=== PATIENT | male | born 1990 | race Caucasian/White ===

== ENCOUNTER 2017-09-14 08:26 | Emergency (ER) | payer OTHER ==
[~2017-09-14] VITALS: Ht 190.5 cm; Wt 131.5 kg
[~2017-09-14 08:26] MED LIST: AUGMENTIN875 MG PO; PERCOCET 5/31 TABLET PO
[2017-09-14] MEDS ORDERED: FLEXERIL10 MG PO (10:00)
[2017-09-14] MEDS ORDERED: PREDNISONE10 MG PO (10:00)
[2017-09-14] MEDS ORDERED: TRAMADOL HCL50 MG PO (10:00)
[2017-09-14 10:44] VITALS: BP 148/83
== END 2017-09-14 10:44 | disposition home or self-care (01) ==
LOC: EME 08:26
DX: M54.32 Sciatica, left side (principal); S39.92XA Unspecified injury of lower back, initial encounter; X50.0XXA Overexertion from strenuous movement or load, initial encounter; F17.200 Nicotine dependence, unspecified, uncomplicated
CPT/HCPCS: 99281; 99283; J7512

== ENCOUNTER 2018-06-20 06:34 | Emergency (ER) | payer SELFPAY ==
[~2018-06-20] VITALS: Ht 190.5 cm; Wt 133.4 kg
[~2018-06-20 06:34] MED LIST changes: +FLEXERIL10 MG PO; +PREDNISONE10 MG PO; +TRAMADOL HCL50 MG PO
[2018-06-20 07:20] LABS: BASOPHIL (%) 0.3 % (0-1); EOSINOPHIL (%) 1.6 % (0-5); EOSINOPHIL COUNT 0.2 K/uL (0-0.3); HEMATOCRIT 43.1 % (38.0-50.0); HEMOGLOBIN 15.3 G/DL (12.5-16.6); IMMATURE GRANULOCYTE (%) 0.4 % (0.0-0.7); LYMPHOCYTE (%) 16.4 % (15-42); LYMPHOCYTE COUNT 1.8 K/uL (1.0-2.8); MCH 31.9 PG (29.0-34.0); MCHC 35.5 G/DL (30.0-36.0); MONOCYTE (%) 4.9 % (3-12); MONOCYTE COUNT 0.5 K/uL (0-0.8); NEUTROPHIL (%) 76.4 % (45-76); NEUTROPHIL COUNT 8.3 K/uL (1.8-6.4); PLATELET COUNT 239 K/uL (156-360); RBC DIS.WIDTH-CV 11.7 % (11.8-14.6); RED BLOOD COUNT 4.79 M/uL (4.00-5.50); WHITE BLOOD COUNT 10.9 K/uL (4.1-10.2)
[2018-06-20 07:41] LABS: ALBUMIN 4.3 G/DL (3.2-4.8); CHLORIDE 106 MEQ/L (99-109); POTASSIUM 4.3 MEQ/L (3.7-5.4); SODIUM 143 MEQ/L (136-147); TOTAL BILIRUBIN 0.3 MG/DL (0.0-1.0)
[2018-06-20 07:47] LABS: ALKALINE PHOSPHATASE 97 IU/L (3-129); ALT (GPT) 48 IU/L (3-49); AST (GOT) 22 IU/L (2-34); GFR ESTIMATE (CALCULATED) > 59 mL/min/ (58.99-99999); GLUCOSE 116 mg/dL (70-99); LIPASE 29 U/L (1.0-51.0); TOTAL PROTEIN 7.2 G/DL (6.4-8.3); UREA NITROGEN (BUN) 12 mg/dL (9-23)
[2018-06-20 08:17] LABS: APPEARANCE CLEAR ((CLEAR)); BILIRUBIN NEGATIVE; BLOOD NEGATIVE; COLOR YELLOW ((YELLOW)); GLUCOSE (STRIP) NEGATIVE; KETONES NEGATIVE; LEUKOCYTES NEGATIVE; NITRITE NEGATIVE; PROTEIN (STRIP) NEGATIVE; SPECIFIC GRAVITY 1.019 (1.000-1.030); UROBILINOGEN 0.2 MG/DL (0.2-1.0)
[2018-06-20 08:59] VITALS: BP 142/82
== END 2018-06-20 08:59 | disposition home or self-care (01) ==
LOC: EME 06:34
PROVIDERS: Emergency Medicine
DX: R11.2 Nausea with vomiting, unspecified (principal); R19.7 Diarrhea, unspecified; F17.200 Nicotine dependence, unspecified, uncomplicated
CPT/HCPCS: 80053; 81003; 83690; 85025; 99281; 99284